=== PATIENT | male | born 1995 ===

== ENCOUNTER 2017-07-30 19:43 | Emergency (ER) | payer OTHER ==
[2017-07-30 19:59] VITALS: BP 146/84
[2017-07-30] MEDS ORDERED: Fluorescein Sodium TOPICAL* 1 MG TEST OPHTHALMIC ONE (20:01)
[2017-07-30] MEDS ORDERED: Tetracaine 0.5% OPTH.SOL 4 ML* 1 DROP BTL RIGHT EYE ONE (20:01)
[2017-07-30] MEDS ORDERED: BSS OPTH.SOL* BTL ONE (20:02)
[2017-07-30] MEDS ORDERED: Eye Irrigation Solution 30 ML BOTTLE RIGHT EYE ONE (20:02)
[2017-07-30] MEDS ORDERED: Fluorescein Sodium TOPICAL* 1 MG TEST ONE (20:02)
[2017-07-30] MEDS ORDERED: Tetracaine 0.5% OPTH.SOL 4 ML* 1 DROP BTL ONE (20:02)
--- NOTE | 2017-07-30 20:33 | UC ---
Eye Complaint HPI - HPI Summary HPI Summary: At 1630pm was cleaning gutters on [id number] roof. Something got into right eye. Since time of injury has had discomfort, redness and tearful discharge. No changes in vision. No contact lens use. No pain with eye movement. - History of Current Complaint Chief Complaint: UCEye Stated Complaint: EYE COMPLAINT Time Seen by Provider: 07/30/17 19:46 Hx Obtained From: Patient, Family/Sales Effectiveness Manager Onset/Duration: Sudden Onset, Lasting Hours, Still Present Timing: Intermittent Episode Lasting Severity Initially: Mild Severity Currently: Mild Location of Injury: Conjunctiva Character: Dull Aggravating Factor(s): Blinking Associated Signs And Symptoms: Positive: Drainage (Clear). Negative: Photophobia, Vision Impairment Right, Vision Impairment Left, Fever, Swelling - Risk Factors Penetrating Injury Risk Factor: Negative Globe Rupture Risk Factors: Negative Acute Glaucoma Risk Factors: Negative Optic Artery Occlusion Risk Factors: Negative - Allergies/Home Medications Allergies/Adverse Reactions: Allergies Allergy/AdvReac Type Severity Reaction Status Date / Time cat dander Allergy Eyes Uncoded 07/30/17 19:59 Itchy/Swollen/Red/Watery Home Medications: Home Medications Loratadine 10 mg PO PRN 07/30/17 [History] PMH/Surg Hx/FS Hx/Imm Hx Previously Healthy: Yes - Surgical History Surgical History: Yes Surgery Procedure, Year, and Place: umbilical hernia surgery for cyst [facility] 2013 - Family History Known Family History: Negative: Blood Disorder - Social History Occupation: Employed Full-time Lives: With Family Alcohol Use: Daily Alcohol Amount: 2 beers Substance Use Type: None Substance Use Comment - Amount & Last Used: 3 cups coffee daily Smoking Status (MU): Never Smoked Tobacco Review of Systems Constitutional: Negative Skin: Negative Eyes: Drainage, Eye Redness ENT: Negative Respiratory: Negative Cardiovascular: Negative Gastrointestinal: Negative Genitourinary: Negative Motor: Negative Neurovascular: Negative Musculoskeletal: Negative Neurological: Negative Psychological: Negative Is Patient Immunocompromised?: No All Other Systems Reviewed And Are Negative: Yes Physical Exam Triage Information Reviewed: Yes Vital Signs: Initial Vital Signs Temp 98.8 F 07/30/17 19:50 Pulse 104 07/30/17 19:50 Resp 16 07/30/17 19:50 BP 146/84 07/30/17 19:50 Pulse Ox 100 07/30/17 19:50 Eyes: Positive: Conjunctiva Inflamed, Other: - SMALL HORIZONTAL ABRASIONS WITH FLUORESCEIN UPTAKE FROM 3OCLOCK TO 9OCLOCK. ENT Exam: Normal ENT: Positive: Normal ENT inspection, Pharynx normal Dental Exam: Normal Neck exam: Normal Neck: Positive: Supple, Nontender, No Lymphadenopathy Respiratory Exam: Normal Respiratory: Positive: Chest non-tender, Lungs clear, Normal breath sounds, No respiratory distress, No accessory muscle use Cardiovascular Exam: Normal Cardiovascular: Positive: RRR, No Murmur, Pulses Normal, Brisk Capillary Refill Abdominal Exam: Normal Abdomen Description: Positive: Nontender, No Organomegaly Musculoskeletal Exam: Normal Musculoskeletal: Positive: Strength Intact, ROM Intact, No Edema Neurological Exam: Normal Psychological Exam: Normal Skin Exam: Normal Eye Complaint Course/Dx - Differential Dx/Diagnosis Differential Diagnosis/HQI/PQRI: Conjunctivitis, Corneal Abrasion, Uveitis Provider Diagnoses: RIGHT CORNEAL ABRASION Discharge - Discharge Plan Condition: Stable Disposition: HOME Prescriptions: Tobramycin 0.3% OPHTH.BOUBACAR* 1 drop RIGHT EYE Q4H #1 btl Patient Education Materials: Corneal Abrasion (ED) Referrals: ROCIO Nelson [Primary Care Provider] - Rylan Shah MD [Medical Doctor] - If Needed
== END 2017-07-30 20:34 | disposition home or self-care (01) ==
LOC: UCCORT 19:43
DX: S05.01XA Injury of conjunctiva and corneal abrasion without foreign body, right eye, initial encounter (principal); X58.XXXA Exposure to other specified factors, initial encounter; Y93.H9 Activity, other involving exterior property and land maintenance, building and construction; Y92.008 Other place in unspecified non-institutional (private) residence as the place of occurrence of the external cause
CPT/HCPCS: 99212; A9270-GY; G0463

== ENCOUNTER 2018-08-04 20:28 | Emergency (ER) | payer OTHER ==
[2018-08-04 21:35] VITALS: BP 125/56
--- NOTE | 2018-08-04 22:17 | ED ---
Skin Complaint - HPI Summary HPI Summary: pt has a history of severe eczema. he uses steroid cream, triamcinolone, on it daily. he states that there are 2 areas to his left leg that are of concern. the one just proximal to his left medial knee drained green fluid today. he states it is better. there is one just inferior to the knee. he states that the skin is slightly warm to touch. he denies any n/v/fever/chills. - History of Current Complaint Chief Complaint: UCSkin Stated Complaint: LEFT LEG COMPLAINT Hx Obtained From: Patient Onset/Duration: Started Days Ago Timing: Constant Onset Severity: Mild Current Severity: Mild Pain Intensity: 0 - Allergy/Home Medications Allergies/Adverse Reactions: Allergies Allergy/AdvReac Type Severity Reaction Status Date / Time cat dander Allergy Eyes Uncoded 08/04/18 21:35 Itchy/Swollen/Red/Watery PMH/Surg Hx/FS Hx/Imm Hx Previously Healthy: Yes Respiratory History: Reports: Hx Asthma - A CHILD - Surgical History Surgery Procedure, Year, and Place: umbilical hernia surgery for cyst [facility] 2013 Infectious Disease History: No Infectious Disease History: Denies: Traveled Outside the [place] in Last 30 Days - Family History Known Family History: Negative: Blood Disorder - Social History Alcohol Use: Daily Alcohol Amount: 2 beers Substance Use Type: Reports: None Substance Use Comment - Amount & Last Used: 3 cups coffee daily Smoking Status (MU): Never Smoked Tobacco Review of Systems Constitutional: Negative Eyes: Negative ENT: Negative Cardiovascular: Negative Respiratory: Negative Gastrointestinal: Negative Genitourinary: Negative Musculoskeletal: Negative Positive: Rash, Other - 2 areas of concern to left leg Neurological: Negative Psychological: Normal All Other Systems Reviewed And Are Negative: No Physical Exam Triage Information Reviewed: Yes Vital Signs On Initial Exam: Initial Vitals Temp Pulse Resp BP Pulse Ox 98.7 F 83 17 125/56 100 08/04/18 21:31 08/04/18 21:31 08/04/18 21:31 08/04/18 21:31 08/04/18 21:31 Vital Signs Reviewed: Yes Appearance: Positive: No Pain Distress, Well-Nourished Skin: Positive: Warm, Dry, Other - to the left medial distal thigh, there is an area of approx quarter size that is slightly warm to touch. there is a scab over the area. no active drainage. it is not fluctuant. distal/medial to left knee is another area that is also approximately a quarter in size. it is minimally warm to palpation. it is non-tender. no fluctuance. Head/Face: Positive: Normal Head/Face Inspection Eyes: Positive: Normal, EOMI, AMARI ENT: Positive: Normal ENT inspection, Hearing grossly normal, Pharynx normal Neck: Positive: Supple, Nontender Respiratory/Lung Sounds: Positive: Clear to Auscultation, Breath Sounds Present Cardiovascular: Positive: Normal, RRR Abdomen Description: Positive: Nontender, Soft Bowel Sounds: Positive: Present Musculoskeletal: Positive: Normal, Strength/ROM Intact Neurological: Positive: Normal, Sensory/Motor Intact, CN Intact II-III Psychiatric: Positive: Normal AVPU Assessment: Alert Diagnostics - Vital Signs Vital Signs Temp Pulse Resp BP Pulse Ox 08/04/18 21:31 98.7 F 83 17 125/56 100 - Laboratory Lab Statement: Any lab studies that have been ordered have been reviewed, and results considered in the medical decision making process. Course/Dx - Course Course Of Treatment: pt has 2 areas of concern to left leg. the one proximal to the knee is concerning for a very early and mild abscess which drained earlier today. the one distal to the knee is an early cellulitis. I will treat with keflex. pt encouraged to continue warm compresses to the one proximal to the knee. pt also encouraged to take tylenol and motrin for pain. his td is utd. - Diagnoses Provider Diagnoses: Cellulitis Discharge - Sign-Out/Discharge Documenting (check all that apply): Patient Departure All imaging exams completed and their final reports reviewed: No Studies - Discharge Plan Condition: Stable Disposition: HOME Prescriptions: Cephalexin CAP* [Keflex CAP*] 500 mg PO TID #21 cap Patient Education Materials: Cellulitis (ED) Referrals: Kathia BECERRA,Howie Gómez [Primary Care Provider] - Additional Instructions: take tylenol and motrin for pain. take the keflex for the mild skin infection to your left leg. return if worse or any new symptoms. Please follow up with your primary care physician beginning of next week. if worse, please go to the ED for further evaluation. - Billing Disposition and Condition Condition: STABLE Disposition: Home
[2018-08-04] MEDS ORDERED: Cephalexin CAP* 500 MG PO ONE (22:20)
== END 2018-08-04 22:25 | disposition home or self-care (01) ==
LOC: UCCORT 20:28
DX: L03.116 Cellulitis of left lower limb (principal)
CPT/HCPCS: 99211; A9270-GY; G0463